=== PATIENT | male | born 2000 | race Caucasian/White ===

== ENCOUNTER 2024-05-03 10:50 | Emergency (ER) | payer MEDICAID ==
[~2024-05-03] VITALS: Ht 180.3 cm; Wt 82.0 kg
[2024-05-03 10:51] VITALS: O2SAT 97
[2024-05-03] MEDS ORDERED: LACTATED RINGERS 1,000 ML IV SCH (11:15)
[2024-05-03 11:30] LABS: BASOPHILS % 0.7 % (0.0-2.0); EOSINOPHILS % 3.6 % (0.0-5.0); HEMOGLOBIN. 13.4 g/dL (14.0-18.0); LYMPHOCYTES % 33.3 % (20.0-50.0); MEAN CORPUSCULAR HEMOGLOBIN 30.8 pg (28.0-32.0); MEAN CORPUSCULAR HGB CONC 32.6 g/dL (31.0-37.0); MEAN CORPUSCULAR VOLUME 94.2 fL (80.0-94.0); MEAN PLATELET VOLUME 7.7 fl (7.4-10.4); MONOCYTES % 8.3 % (2.0-8.0); NEUTROPHILS % 54.1 % (40.0-76.0); PLATELET 274 x1000/uL (130-400); RED BLOOD CELL COUNT 4.35 mill/uL (4.7-6.1); RED CELL DISTRIBUTION WIDTH 14.4 % (11.6-14.6); WHITE BLOOD COUNT 10.4 x1000/uL (4.5-11.0)
[2024-05-03 11:35] LABS: CHLORIDE 107 mEq/L (98-107); POTASSIUM 4.7 mEq/L (3.5-5.1); SODIUM 138 mEq/L (136-145)
[2024-05-03 11:36] LABS: CARBON DIOXIDE 29 mEq/L (21-32)
[2024-05-03 11:37] LABS: CALCIUM 9.2 mg/dL (8.7-10.4)
[2024-05-03 11:41] LABS: CREATININE 1.1 mg/dL (0.6-1.3); GLUCOSE 89 mg/dL (70-105); UREA NITROGEN BLOOD 11 mg/dL (9-23)
[2024-05-03 11:43] LABS: ALANINE AMINOTRANSFERASE 10 IU/L (10-49); ALBUMIN 4.3 g/dL (3.2-4.8); ASPARTATE AMINOTRANSFERASE 16 IU/L (<34)
[2024-05-03 11:44] LABS: BILIRUBIN TOTAL 0.3 mg/dL (0.1-1.0)
[2024-05-03] MEDS: LEVETIRACETAM 500MG PREMIX 100 ML IV ONE ×2 (12:21)
[2024-05-03 12:25] VITALS: BP 150/74; PULSE 70; RESP 17; TEMP 37.11408; O2SAT 100
== END 2024-05-03 13:38 | disposition left against medical advice (07) ==
LOC: ER 12:06 → EDBEDREQ 12:57 → ER 13:38
DX: G40.901 Epilepsy, unspecified, not intractable, with status epilepticus (principal); M25.561 Pain in right knee; M54.9 Dorsalgia, unspecified; I49.9 Cardiac arrhythmia, unspecified; F19.10 Other psychoactive substance abuse, uncomplicated; Z98.890 Other specified postprocedural states
CPT/HCPCS: 80053; 85025; 36415; 73562; 70450; 93005; 96365; 99291; J1953; Z7610